=== PATIENT | male | born 1975 | race Hispanic/Latino ===

== ENCOUNTER 2023-01-31 10:14 | Emergency (ER) | payer OTHER ==
[~2023-01-31] VITALS: Ht 172.7 cm; Wt 93.0 kg
[2023-01-31] MEDS ORDERED: HYDRALAZINE 20MG/ML VIAL IV ONE ×3 (12:30→14:30)
[2023-01-31 12:32] LABS: BASOPHILS % (AUTO) 0.8 % (0.0-5.0); EOSINOPHILS % (AUTO) 2.8 % (0.0-8.0); HEMATOCRIT 46.8 % (42-54); LYMPHOCYTES % (AUTO) 25.2 % (21.0-51.0); MEAN CORPUSCULAR HEMOGLOBIN 30.1 pg (27.0-33.0); MEAN CORPUSCULAR HGB CONC 35.3 g/dL (32.0-36.0); MEAN CORPUSCULAR VOLUME 85.2 fL (79-99); MONOCYTES % (AUTO) 7.1 % (3.0-13.0); NEUTROPHILS % (AUTO) 63.8 % (40.0-77.0); PLATELET COUNT (AUTO) 230 K/uL (130-400); RED BLOOD CELL COUNT(AUTO) 5.49 MIL/uL (4.50-6.20); WHITE BLOOD COUNT (AUTO) 7.8 K/uL (4.8-10.8)
[2023-01-31 12:42] LABS: POTASSIUM 3.3 mmol/L (3.5-5.1)
[2023-01-31 12:46] LABS: ALBUMIN 3.9 g/dL (3.5-5.0); TOTAL PROTEIN, SERUM 7.3 g/dL (6.0-8.3)
[2023-01-31 13:00] LABS: B-TYPE NATRIURETIC PEPTIDE 6 pg/mL (0-100)
[2023-01-31] MEDS ORDERED: HYDR25TA PO (14:41)
[2023-01-31] MEDS ORDERED: PRED20TA3 PO (14:41)
[2023-01-31] MEDS ORDERED: LISI10TA24 PO (14:41)
[2023-01-31] MEDS ORDERED: LABETALOL 20MG SYG IV ONE (15:30)
[2023-01-31 15:53] VITALS: BP 147/82
== END 2023-01-31 16:15 | disposition home or self-care (01) ==
LOC: EDH 10:14
DX: G51.0 Bell's palsy (principal); I16.0 Hypertensive urgency; I10 Essential (primary) hypertension; E78.00 Pure hypercholesterolemia, unspecified; E11.9 Type 2 diabetes mellitus without complications
CPT/HCPCS: 99285; 96374; 70450; 71045; 96375; 84484; 80053; 83880; 85025; 36415; 96376; 93005; J0360 ×2

== ENCOUNTER 2024-10-07 10:46 | Emergency (ER) | payer SELFPAY ==
[~2024-10-07] VITALS: Ht 172.7 cm; Wt 95.3 kg
[~2024-10-07 10:46] MED LIST: HYDR25TA PO; LISI10TA24 PO; PRED20TA3 PO
--- NOTE | 2024-10-07 11:20 | ERN ---
ED Note History of Present Illness Stated Complaint: PALPITATIONS Chief Complaint: Palpitations Time Seen by MD: 11:00 Time Seen by Midlevel: 11:10 Dictation: Mr. Melendez is a 49 year old male with history of obesity who presented to the emergency department this morning for evaluation of palpitations. He states that at around [id number] he was experiencing palpitations which he describes as pounding and fast accompanied by cold sweats and feeling jittery. He states he was sitting down drinking coffee when this occurred. He states he has had similar episodes but less severe. Upon review of his current medications noted patient is taking phentermine for weight loss. He denies recent illness, fever, chills, shortness of breath, cough, chest pain, edema, abdominal pain, nausea, vomiting, diarrhea, dysuria, headache, focal weakness/paresthesia, or dizziness. Allergies: Coded Allergies: No Known Allergies (Unverified Allergy, Unknown, 01/31/23) Home Meds Active Scripts Prednisone (Prednisone) 20 Mg Tablet, 40 MG PO DAILY, #7 TAB Prov:ONIEL JOHNSON MD 01/31/23 Hydrochlorothiazide (Hydrochlorothiazide) 25 Mg Tablet, 25 MG PO DAILY, #30 TAB Prov:ONIEL JOHNSON MD 01/31/23 Lisinopril (Lisinopril) 10 Mg Tablet, 1 TAB PO DAILY for 30 Days, #30 TAB 0 Refills Prov:ONIEL JOHNSON MD 01/31/23 Past Medical History Past Medical History: Diabetes-Type II, High Cholesterol, Hypertension Surgical History: None Review of System Dictation REVIEW OF SYSTEMS: CONSTITUTIONAL: Patient denies fevers, chills, sweats and weight changes. EYES: Patient denies any visual symptoms. EARS, NOSE, AND THROAT: No difficulties with hearing. No symptoms of rhinitis or sore throat. CARDIOVASCULAR: Patient denies chest pains, orthopnea and paroxysmal nocturnal dyspnea. Reports episode palpitations. Describes as rapid heart rate; " pounding /fast " patient states he is currently taking phentermine. RESPIRATORY: No dyspnea on exertion, no wheezing or cough. GI: No nausea, vomiting, diarrhea, constipation, abdominal pain, hematochezia or melena. : No urinary hesitancy or dribbling. No nocturia or urinary frequency. No abnormal urethral discharge. MUSCULOSKELETAL: No myalgias or arthralgias. NEUROLOGIC: No chronic headaches, no seizures. Patient denies numbness, tingling or weakness. PSYCHIATRIC: Patient denies problems with mood disturbance. No problems with anxiety. ENDOCRINE: No excessive urination or excessive thirst. DERMATOLOGIC: Patient denies any rashes or skin changes. Initial Vital Sign VS Vital Signs Date Time Temp Pulse Resp B/P (MAP) Pulse Ox O2 Delivery O2 Flow Rate FiO2 10/07/24 10:48 98.4 87 18 174/97 98 Room Air 0 10/07/24 10:50 21 Physical Exam Dictation Vital signs: Reviewed. Afebrile Constitutional: No acute distress. Non-toxic appearing. Accompanied by mother Head/Face: Normocephalic, atraumatic. Eyes: Periorbital areas with no swelling, redness, or edema. Lids and lashes are normal. Conjunctival injection is absent. Sclera anicteric. Pupils equal, round, reactive to light. ENT: Pinnas intact and no signs of trauma or erythema. Ear canals clear and no discharge. TMs no erythema. No nasal discharge or bleeding noted. Oropharynx with no exudate, redness, swelling, masses, exudates, or evidence of obstruction. Uvula midline. Mucous membranes moist. Neck: Trachea midline, no masses palpated, and no cervical lymphadenopathy. No swelling. Supple, full range of motion. Chest/Axilla: No tenderness, no crepitus, no paradoxical movement, no retractions. Cardiovascular: Regular rate, regular rhythm, no murmur, no gallops. Symmetric pulses. No peripheral edema. Normotensive. Twelve lead EKG reflects a sinus rhythm without ST elevation or depression. Respiratory: Respirations even and unlabored. Lung sounds clear; no wheezes, rales or rhonchi. Room air SpO2 98% Gastrointestinal: Obese. No distention is appreciated. Bowel sounds are normal. No mass or organomegaly . There is no tenderness. No rebound. No rigidity. No voluntary or involuntary guarding. No Garner's sign. Neurological: Normal speech, gross motor function intact, gross sensory function intact. No focal weakness/Paresthesia. Musculoskeletal/Extremities: All extremities have full range of motion, no pain or tenderness on palpation. Symmetric pulses. Integumentary: Intact. Skin is normal color, warm and dry. Cap refill less than 2 seconds. Results (Laboratory/Radiology) Laboratory/Radiology Laboratory Tests Test 10/07/24 11:20 White Blood Count 8.1 K/uL (4.8-10.8) Red Blood Count 5.46 MIL/uL (4.50-6.20) Hemoglobin 16.3 g/dL (14.0-18.0) Hematocrit 47.1 % (42-54) Mean Corpuscular Volume 86.3 fL (79-99) Mean Corpuscular Hemoglobin 29.9 pg (27.0-33.0) Mean Corpuscular Hemoglobin Concent 34.6 g/dL (32.0-36.0) Red Cell Distribution Width 11.9 % (11.0-15.5) Platelet Count 237 K/uL (130-400) Mean Platelet Volume 10.6 fL (7.5-10.5) H Immature Granulocyte % (Auto) 0.9 % (0-1) Neutrophils (%) (Auto) 60.7 % (40.0-77.0) Lymphocytes (%) (Auto) 26.4 % (21.0-51.0) Monocytes (%) (Auto) 8.5 % (3.0-13.0) Eosinophils (%) (Auto) 2.6 % (0.0-8.0) Basophils (%) (Auto) 0.9 % (0.0-5.0) Neutrophils # (Auto) 4.9 K/uL (1.8-7.7) Lymphocytes # (Auto) 2.1 K/uL (1.0-4.8) Monocytes # (Auto) 0.7 K/uL (0.1-1.0) Eosinophils # (Auto) 0.21 K/uL (0.00-0.70) Basophils # (Auto) 0.07 K/uL (0.00-0.20) Absolute Immature Granulocyte (auto 0.07 K/uL (0-1) Nucleated Red Blood Cells 0.0 % (0.0-0.19) Sodium Level 138 mmol/L (136-145) Potassium Level 3.9 mmol/L (3.5-5.1) Chloride Level 103 mmol/L (101-111) Carbon Dioxide Level 29 mmol/L (21-32) Blood Urea Nitrogen 13 mg/dL (7-18) Creatinine 1.1 mg/dL (0.5-1.3) Glomerular Filtration Rate Calc 83 mL/min (>90) Random Glucose 235 mg/dL (70-105) H Total Calcium 8.6 mg/dL (8.5-10.1) Magnesium Level 1.80 mg/dL (1.80-2.40) Troponin I High Sensitivity 9 ng/L (4-75) Labs Reviewed?: Yes EKG Comment: EKG Interpretation: Time Reviewed: 1151 Normal sinus rhythm Ventricular rate: [71 bpm MI Interval: 144 ms QRS duration: [address] segment elevation or depression. Clinical impression: Sinus rhythm EKG Reviewed and interpreted by Dr. Cantu ED Course ED Course Orders Procedure Category Date Status Time 12 Lead Ekg Tracing- EKG 10/07/24 Logged Technical 11:15 Cbc With Differential LAB 10/07/24 Complete 11:15 Basic Metabolic Panel LAB 10/07/24 Complete 11:15 Magnesium LAB 10/07/24 Complete 11:15 Troponin I High LAB 10/07/24 Complete Sensitivity 11:15 Aspirin 325mg Tab PHA 10/07/24 In Process (Aspirin 325mg Tab) 11:30 Urinalysis Profile LAB 10/07/24 Logged 12:49 Current Medications Medications (Trade) Dose Ordered Sig/Shlomo Route PRN Reason Start Time Stop Time Status Last Admin Dose Admin Aspirin (Aspirin 325mg Tab) 325 mg ONCE ONCE PO 10/07/24 11:30 10/07/24 11:32 DC 10/07/24 11:35 Vital Signs Date Time Temp Pulse Resp B/P (MAP) Pulse Ox O2 Delivery O2 Flow Rate FiO2 10/07/24 11:14 97.5 87 16 154/99 97 Room Air* 0 21 10/07/24 10:50 98.4 87 18 174/94 98 Room Air* 0 21 10/07/24 10:48 98.4 87 18 174/97 98 Room Air 0 Uneventful ED course. Blood pressure improved 154/99. Patient denies chest pain or palpitations throughout stay. Twelve lead EKG reflects a sinus rhythm without ST elevation or depression. Laboratory findings as noted below. Troponin negative. Glucose was elevated at 2:35 a.m.. Patient states he recently stopped taking metformin and was switched to Jardiance. Discussed findings with patient and advised to stopped taking phentermine for weight loss. He will follow up with his PCP early next week and take copies of his labs. Medical Decision Making MDM MDM: Differential diagnosis: Adverse reaction to medication, ACS, arrhythmia Rationale: Tests considered and ordered secondary to shared decision making include: EKG, labs Previous outside records reviewed: Old ER visits. Risk of complication and/or morbidity or mortality of patient management: None Medications-Per medication reconciliation Need for hospitalization: Patient does not meet criteria for hospitalization. Need for emergency major/minor surgery: No There are no social concerns with this patient. Prescription drug management: N/A Prescriptions will include symptomatic care Patient's prior external medical records from other ER visits were reviewed by me as indicated. Prior testing and results from previous visits were reviewed. Prior tests were taken into account with medical decision making and resource utilization, independent historian/historians were used to obtain complete medical history. I independently interpreted the test that were performed, results were reviewed by me and considered findings on radiology if ordered. Medical management and examination interpretation discussions were had by me with other qualified healthcare professionals as indicated for the patient's care. DX & DISP Disposition: Discharge Departure Impression: Primary Impression: Palpitations Additional Impressions: Blood glucose elevated, suspect side effect Phentermine Condition: Stable Additional Instructions: rest. Plenty of fluids. Try to decrease your caffeine intake.. Stop Phentermine; continue all other medications.. You will need to follow up with your primary care provider on Wednesday; take copies of all your labs/EKG. Return to the emergency department for any worsening of symptoms or concerns Referrals: BROCK HUNT (PCP) Time of Disposition: 13:09 MIKA LUIS NP Oct 07, 2024 11:20
[2024-10-07 11:29] LABS: BASOPHILS # (AUTO) 0.07 K/uL (0.00-0.20); BASOPHILS % (AUTO) 0.9 % (0.0-5.0); EOSINOPHILS # (AUTO) 0.21 K/uL (0.00-0.70); EOSINOPHILS % (AUTO) 2.6 % (0.0-8.0); HEMATOCRIT 47.1 % (42-54); IMMATURE GRANULOCYTE ABSOLUTE 0.07 K/uL (0-1); LYMPHOCYTES # (AUTO) 2.1 K/uL (1.0-4.8); LYMPHOCYTES % (AUTO) 26.4 % (21.0-51.0); MEAN CORPUSCULAR HEMOGLOBIN 29.9 pg (27.0-33.0); MEAN CORPUSCULAR HGB CONC 34.6 g/dL (32.0-36.0); MEAN CORPUSCULAR VOLUME 86.3 fL (79-99); MONOCYTES # (AUTO) 0.7 K/uL (0.1-1.0); MONOCYTES % (AUTO) 8.5 % (3.0-13.0); NEUTROPHILS # (AUTO) 4.9 K/uL (1.8-7.7); NEUTROPHILS % (AUTO) 60.7 % (40.0-77.0); PLATELET COUNT (AUTO) 237 K/uL (130-400); RED BLOOD CELL COUNT(AUTO) 5.46 MIL/uL (4.50-6.20); RED CELL DISTRIBUTION WIDTH 11.9 % (11.0-15.5); WHITE BLOOD COUNT (AUTO) 8.1 K/uL (4.8-10.8)
[2024-10-07 11:35] LABS: CREATININE 1.1 mg/dL (0.5-1.3); MAGNESIUM 1.8 mg/dL (1.80-2.40); POTASSIUM 3.9 mmol/L (3.5-5.1)
[2024-10-07] MEDS: ASPIRIN 325MG TAB PO ONE (11:35)
[2024-10-07 14:13] VITALS: BP 149/87; PULSE 85; RESP 16; TEMP 98; O2SAT 98
[2024-10-07 15:04] LABS: ADD UA MICROSCOPIC YES; APPEARANCE,URINE CLEAR (CLEAR); BILIRUBIN,URINE NEGATIVE (NEGATIVE); COLOR,URINE LIGHT-YELLOW (YELLOW); GLUCOSE, URINE (UA) >=1000 mg/dL (NEGATIVE); KETONES,URINE NEGATIVE (NEGATIVE); LEUKOCYTE ESTERASE ,URINE NEGATIVE Leu/uL (NEGATIVE); NITRATE,URINE NEGATIVE (NEGATIVE); OCCULT BLOOD,URINE NEGATIVE (NEGATIVE); PH,URINE 5.5 (5.0-8.0); PROTEIN,URINE NEGATIVE (NEGATIVE); UROBILINOGEN,URINE 0.2 mg/dL (0.2-1.0)
[2024-10-07 15:06] LABS: WBC,URINE 0-1 /HPF (0-1)
--- NOTE | 2024-10-07 17:49 | EKG ---
[facility] Test Date: 2024-10-07 Test Time: 11:51:03 Pat Name: YURY DUGAN Department: ED Room: Gender: M [employer]: [id number] : 1975 Requested By: MIKA LUIS Order Number: [id number] Reading MD: Salvador Mtz Measurements Intervals Matthews Rate: 71 P: 13 AR: 144 QRS: -9 QRSD: 101 T: 9 QT: 386 QTc: 420 Interpretive Statements Sinus rhythm Inferior infarct, old Compared to ECG 01/31/2023 12:43:38 No significant changes Electronically Signed On 10-08-2024 09:55:27 CLOTH PIECER by Salvador Mtz Please click the below link to view image of tracing.
== END 2024-10-07 14:15 | disposition home or self-care (01) ==
LOC: EDH 10:46
DX: R00.2 Palpitations (principal); E11.65 Type 2 diabetes mellitus with hyperglycemia; E78.00 Pure hypercholesterolemia, unspecified; I10 Essential (primary) hypertension; Z79.52 Long term (current) use of systemic steroids; Z79.899 Other long term (current) drug therapy
CPT/HCPCS: 36415; 80048; 81001; 83735; 84484; 85025; 93005; 99284